=== PATIENT | female | born 1980 | race Caucasian/White ===

== ENCOUNTER 2017-02-12 17:32 | Emergency (ER) | payer SELFPAY ==
[2017-02-12 17:50] VITALS: BP 159/94
[2017-02-12 18:26] LABS: BILIRUBIN,URINE NEGATIVE (NEG); GLUCOSE,URINE NEGATIVE (NEG); NITRITE,URINE NEGATIVE (NEG); PROTEIN,URINE NEGATIVE (NEG-TRACE); UROBILINOGEN,URINE 0.2 mg/dL (0.2 mg/dL)
[2017-02-12] MEDS ORDERED: ONDANSETRON PF 4 MG/2 ML VIAL. IV ONE (18:30)
[2017-02-12] MEDS ORDERED: IV NORMAL SALINE 1000ML BAG 1,000 ML IV ONE (18:30)
[2017-02-12] MEDS ORDERED: MORPHINE SULFATE 4 MG/ML DISP.SYRIN. IV ONE ×2 (18:30→20:00)
[2017-02-12 18:31] LABS: BASO % 0 % (0-3); EOS % 3 % (0-3); HEMATOCRIT 41.7 % (36.0-47.0); HEMOGLOBIN 13.9 g/dL (12.0-15.5); LYMPH # 3.4 x10^3/uL (1.0-4.8); LYMPH % 36 % (24-48); MEAN CORPUSCULAR HEMOGLOBIN 30 pg (25-35); MEAN CORPUSCULAR HGB CONC 33 g/dL (31-37); MEAN CORPUSCULAR VOLUME 89 fL (79-100); MONO % 7 % (0-9); NEUT % 54 % (31-73); PLATELET COUNT 201 x10^3/uL (140-400); RED BLOOD COUNT 4.69 x10^6/uL (3.50-5.40); RED CELL DISTRIBUTION WIDTH 14.5 % (11.5-14.5); WHITE BLOOD COUNT 9.5 x10^3/uL (4.0-11.0)
[2017-02-12 18:34] LABS: BACTERIA,URINE FEW /HPF (0-FEW); RBC,URINE 0 /HPF (0-2); SQUAMOUS EPITHELIAL CELL,UR MOD /LPF; WBC,URINE OCC /HPF (0-4)
[2017-02-12 18:40] LABS: CALCIUM 8.7 mg/dL (8.5-10.1); CREATININE 1.1 mg/dL (0.6-1.0); GFR 56.9; POTASSIUM 3.3 mmol/L (3.5-5.1)
[2017-02-12 18:46] LABS: ALBUMIN 3.6 g/dL (3.4-5.0); ALBUMIN/GLOBULIN RATIO 1.1 (1.0-1.7); TOTAL BILIRUBIN 0.2 mg/dL (0.2-1.0); TOTAL PROTEIN 6.8 g/dL (6.4-8.2)
[2017-02-12] MEDS ORDERED: KETOROLAC TROMETHAMINE 30 MG/ML INJ. ONE (19:03)
[2017-02-12] MEDS ORDERED: KETOROLAC TROMETHAMINE 30 MG/ML INJ. IV ONE (19:15)
--- NOTE | 2017-02-12 19:38 | ED.ADGEN ---
Past Medical History Past Medical History: UTI Additional Past Medical Histor: MULTIPLE RENAL STONES Past Surgical History: Hysterectomy Additional Past Surgical Histo: LITHROTRIPSY Alcohol Use: None Drug Use: None Adult General Chief Complaint Chief Complaint: FLANK PAIN HPI HPI Patient is a 36 year old with history of kidney stones requiring stent placement and lithotripsy presents with intermittent left flank pain, with urinary frequency and dysuria for the past or days. Patient has been treating symptoms with ibuprofen with limited relief. Reports nausea with vomiting earlier today, currently complaints of nausea only. Orts sweats, but no fever or chills. No hematuria dysuria. Patient has previous hysterectomy. Patient recently relocated from [place] and has not yet established with a local PCP or urologist. Review of Systems Review of Systems ROS as per HPI. Current Medications Current Medications Current Medications Medications (Trade) Dose Ordered Sig/Audi Start Time Stop Time Status Last Admin Dose Admin Ketorolac Tromethamine (Toradol) 30 mg STK-MED ONCE 02/12/17 19:03 02/12/17 19:04 DC Morphine Sulfate 4 mg 1X ONCE 02/12/17 20:00 02/12/17 20:01 DC 02/12/17 20:01 4 MG Ondansetron HCl (Zofran) 4 mg 1X ONCE 02/12/17 18:30 02/12/17 18:31 DC 02/12/17 18:28 4 MG Sodium Chloride 1,000 ml @ 1,000 mls/hr 1X ONCE 02/12/17 18:30 02/12/17 19:29 DC 02/12/17 18:28 1,000 MLS/HR Allergies Allergies Allergies Coded Allergies Type Severity Reaction Last Updated Verified amoxicillin Allergy Severe CAUSES RAW SWOLLEN THROAT 02/12/17 Yes Physical Exam Physical Exam Constitutional: Diaphoretic, moderate distress secondary to pain. HENT: Normocephalic, atraumatic, bilateral external ears normal, oropharynx moist, no oral exudates, nose normal. Eyes: PERRL. Neck: Normal range of motion. Cardiovascular:Heart rate regular rhythm, no murmur. Lungs & Thorax: Bilateral breath sounds clear to auscultation. Abdomen: Bowel sounds normal, soft, no tenderness. Skin: Warm, dry. Back: No tenderness. Extremities: No tenderness, no cyanosis, no clubbing, ROM intact, no edema. Neurologic: Alert and oriented X 3, normal motor function, normal sensory function, no focal deficits noted. Psychologic: Affect normal, judgement normal, mood normal. Current Patient Data Vital Signs Vital Signs Date Time Temp Pulse Resp B/P (MAP) Pulse Ox O2 Delivery O2 Flow Rate FiO2 02/12/17 17:50 98.3 90 22 159/94 (115) 100 Room Air 98.3 Lab Values Laboratory Tests Test 02/12/17 17:45 02/12/17 18:00 Urine Collection Type Unknown Urine Color Yellow Urine Clarity Clear Urine pH 7.0 Urine Specific [place] 1.010 Urine Protein Negative mg/dL (NEG-TRACE) Urine Glucose (UA) Negative mg/dL (NEG) Urine Ketones (Stick) Negative mg/dL (NEG) Urine Blood Negative (NEG) Urine Nitrite Negative (NEG) Urine Bilirubin Negative (NEG) Urine Urobilinogen Dipstick 0.2 mg/dL (0.2 mg/dL) Urine Leukocyte Esterase Negative (NEG) Urine RBC 0 /HPF (0-2) Urine WBC Occ /HPF (0-4) Urine Squamous Epithelial Cells Mod /LPF Urine Bacteria Few /HPF (0-FEW) Urine Mucus Mod /LPF White Blood Count 9.5 x10^3/uL (4.0-11.0) Red Blood Count 4.69 x10^6/uL (3.50-5.40) Hemoglobin 13.9 g/dL (12.0-15.5) Hematocrit 41.7 % (36.0-47.0) Mean Corpuscular Volume 89 fL (79-100) Mean Corpuscular Hemoglobin 30 pg (25-35) Mean Corpuscular Hemoglobin Concent 33 g/dL (31-37) Red Cell Distribution Width 14.5 % (11.5-14.5) Platelet Count 201 x10^3/uL (140-400) Neutrophils (%) (Auto) 54 % (31-73) Lymphocytes (%) (Auto) 36 % (24-48) Monocytes (%) (Auto) 7 % (0-9) Eosinophils (%) (Auto) 3 % (0-3) Basophils (%) (Auto) 0 % (0-3) Neutrophils # (Auto) 5.1 x10^3uL (1.8-7.7) Lymphocytes # (Auto) 3.4 x10^3/uL (1.0-4.8) Monocytes # (Auto) 0.7 x10^3/uL (0.0-1.1) Eosinophils # (Auto) 0.2 x10^3/uL (0.0-0.7) Basophils # (Auto) 0.0 x10^3/uL (0.0-0.2) Sodium Level 141 mmol/L (136-145) Potassium Level 3.3 mmol/L (3.5-5.1) L Chloride Level 106 mmol/L (98-107) Carbon Dioxide Level 25 mmol/L (21-32) Anion Gap 10 (6-14) Blood Urea Nitrogen 10 mg/dL (7-20) Creatinine 1.1 mg/dL (0.6-1.0) H Estimated GFR (Cockcroft-Gault) 56.9 BUN/Creatinine Ratio 9 (6-20) Glucose Level 105 mg/dL (70-99) H Calcium Level 8.7 mg/dL (8.5-10.1) Total Bilirubin 0.2 mg/dL (0.2-1.0) Aspartate Amino Transferase (AST) 11 U/L (15-37) L Alanine Aminotransferase (ALT) 19 U/L (14-59) Alkaline Phosphatase 62 U/L (46-116) C-Reactive Protein, Quantitative 1.0 mg/L (0-3.3) Total Protein 6.8 g/dL (6.4-8.2) Albumin 3.6 g/dL (3.4-5.0) Albumin/Globulin Ratio 1.1 (1.0-1.7) Laboratory Tests 02/12/17 18:00 Laboratory Tests 02/12/17 18:00 EKG EKG [] Radiology/Procedures Radiology/Procedures [CT abdomen pelvis: No acute process per radiology report.] Course & Med Decision Making Course & Med Decision Making Pertinent Labs and Imaging studies reviewed. (See chart for details) [Lab work, CT abdomen/pelvis reassuring. No evidence of your ureteral obstruction. Patient may have had a recently passed stone. Symptoms typically improved in the ED with treatment. Recommend supportive care with local PCP follow-up in urology referral as needed. Return precautions reviewed. Dragon Disclaimer Dragon Disclaimer This electronic medical record was generated, in whole or in part, using a voice recognition dictation system. KUSH MEJIA 16, 2017 19:38
--- NOTE | 2017-02-12 20:08 | RAD ---
History: Left flank pain, nausea and vomiting for 2 days. Comparison: None. Technique: CT of the abdomen and pelvis was performed without intravenous or oral contrast. Exposure: One or more of the following individualized dose reduction techniques were utilized for this examination: 1. Automated exposure control 2. Adjustment of the mA and/or kV according to patient size 3. Use of iterative reconstruction technique Findings: Evaluation of solid organs of the abdomen and pelvis is limited by lack of intravenous contrast. Evaluation of enteric structures may be limited by lack of oral contrast. Liver, spleen, pancreas, gallbladder, and bilateral adrenal glands are unremarkable. No bowel obstruction or inflammation is seen. Appendix is without evidence of inflammation. Uterus is absent. Bilateral ovaries were likely left in place. Urinary bladder is unremarkable. Both ureters are free of stone or obstruction. Superior pole of right kidney demonstrates 4 mm nonobstructing nephrolith. Inferior pole of the right kidney demonstrates 5 mm nonobstructing nephrolith. Superior pole of the left kidney demonstrates 4 mm nonobstructing nephrolith. Interpolar region of the left kidney demonstrates 2 nonobstructing nephroliths in measuring 2 mm. Impression: 1. Nonobstructive bilateral nephrolithiasis. 2. No acute abnormality identified in the abdomen or pelvis. Electronically signed by: Ankush Powell MD (02/12/2017 8:05 PM)
== END 2017-02-12 20:42 | disposition home or self-care (01) ==
LOC: ER 17:32
DX: R10.9 Unspecified abdominal pain (principal); R30.0 Dysuria; R11.2 Nausea with vomiting, unspecified; Z87.442 Personal history of urinary calculi; Z87.440 Personal history of urinary (tract) infections; Z90.710 Acquired absence of both cervix and uterus; Z88.1 Allergy status to other antibiotic agents
CPT/HCPCS: 36415; 74176; 80053; 81001; 85027; 86140; 87040; 96361; 96374; 96375; 96376; 99285; J1885; J2270; J2405; J7030

== ENCOUNTER 2017-05-25 17:53 | Emergency (ER) | payer SELFPAY ==
[~2017-05-25] VITALS: Ht 167.6 cm; Wt 86.2 kg
[2017-05-25] MEDS ORDERED: IV NORMAL SALINE 1000ML BAG 1,000 ML IV SCH (18:12)
--- NOTE | 2017-05-25 18:14 | PHYS DOC ---
Past Medical History Past Medical History: Kidney Infection, Kidney Stone, UTI Additional Past Medical Histor: MULTIPLE RENAL STONES, ovarian cysts Past Surgical History: Hysterectomy Additional Past Surgical Histo: LITHROTRIPSY, percutaneous stent, 4 renal stents, kidney stone retreivals Alcohol Use: None Drug Use: None Adult General Chief Complaint Chief Complaint: FLANK PAIN HPI HPI Patient is a 36 year old female who presents with right-sided flank pain. It started yesterday in its been constant. She states it feels like her kidney stone that she's had in the past. She feels nauseated but denies any vomiting. She states it started in her back and now is radiating around into her right flank. She is requesting Toradol. She states that other than Toradol Dilaudid works. She states she's had numerous lithotripsies and percutaneous stents in [place] and now she does appear does not have a urologist as of yet. She states usually she can work through the pain at home by pushing fluids. Review of Systems Review of Systems Constitutional: Denies fever or chills [] Eyes: Denies change in visual acuity, redness, or eye pain [] HENT: Denies nasal congestion or sore throat [] Respiratory: Denies cough or shortness of breath [] Cardiovascular: No additional information not addressed in HPI [] GI: Positive for abdominal pain, nausea, denies any vomiting, bloody stools or diarrhea [] : Denies dysuria or hematuria [] Musculoskeletal: Denies back pain or joint pain [] Integument: Denies rash or skin lesions [] Neurologic: Denies headache, focal weakness or sensory changes [] Endocrine: Denies polyuria or polydipsia [] Current Medications Current Medications Current Medications Medications (Trade) Dose Ordered Sig/[facility] Start Time Stop Time Status Last Admin Dose Admin Fentanyl Citrate (Fentanyl 2ml Vial) 50 mcg PRN Q15MIN PRN 05/25/17 18:15 05/26/17 18:14 05/25/17 18:37 50 MCG Hydromorphone HCl (Dilaudid) 1 mg PRN Q15MIN PRN 05/25/17 19:00 05/26/17 18:59 05/25/17 19:56 1 MG Ketorolac Tromethamine (Toradol) 30 mg 1X ONCE 05/25/17 19:00 05/25/17 19:01 DC 05/25/17 19:10 30 MG Ondansetron HCl (Zofran) 4 mg 1X ONCE 05/25/17 19:15 05/25/17 19:22 DC 05/25/17 19:14 4 MG Sodium Chloride 1,000 ml @ 1,000 mls/hr 1X ONCE 05/25/17 20:30 05/25/17 21:29 05/25/17 20:40 1,000 MLS/HR Tamsulosin HCl (Flomax) 0.4 mg 1X ONCE 05/25/17 20:30 05/25/17 20:33 DC 05/25/17 20:39 0.4 MG Allergies Allergies Allergies Coded Allergies Type Severity Reaction Last Updated Verified amoxicillin Allergy Severe CAUSES RAW SWOLLEN THROAT 02/12/17 Yes Physical Exam Physical Exam Constitutional: Well developed, well nourished, no acute distress, non-toxic appearance. [] HENT: Normocephalic, atraumatic, bilateral external ears normal, oropharynx moist, no oral exudates, nose normal. [] Eyes: PERRLA, EOMI, conjunctiva normal, no discharge. [] Neck: Normal range of motion, no tenderness, supple, no stridor. [] Cardiovascular:Heart rate regular rhythm, no murmur [] Lungs & Thorax: Bilateral breath sounds clear to auscultation [] Abdomen: Bowel sounds normal, soft, tender palpation in the right flank, no masses, no pulsatile masses. [] Skin: Warm, dry, no erythema, no rash. [] Back: No tenderness, no CVA tenderness. [] Extremities: No tenderness, no cyanosis, no clubbing, ROM intact, no edema. [] Neurologic: Alert and oriented X 3, normal motor function, normal sensory function, no focal deficits noted. [] Psychologic: Affect normal, judgement normal, mood normal. [] Current Patient Data Vital Signs Vital Signs Date Time Temp Pulse Resp B/P (MAP) Pulse Ox O2 Delivery O2 Flow Rate FiO2 05/25/17 19:56 20 05/25/17 18:45 133 163/106 (125) 99 Room Air 05/25/17 18:01 98.1 98.1 Lab Values Laboratory Tests Test 05/25/17 18:10 05/25/17 18:20 Urine Collection Type Unknown Urine Color Yellow Urine Clarity Clear Urine pH 6.5 Urine Specific [place] <=1.005 Urine Protein Negative mg/dL (NEG-TRACE) Urine Glucose (UA) Negative mg/dL (NEG) Urine Ketones (Stick) Negative mg/dL (NEG) Urine Blood Large (NEG) Urine Nitrite Negative (NEG) Urine Bilirubin Negative (NEG) Urine Urobilinogen Dipstick 0.2 mg/dL (0.2 mg/dL) Urine Leukocyte Esterase Negative (NEG) Urine RBC Tntc /HPF (0-2) Urine WBC Occ /HPF (0-4) Urine Squamous Epithelial Cells Few /LPF Urine Bacteria 0 /HPF (0-FEW) Urine Test Negative (NEG) White Blood Count 12.0 x10^3/uL (4.0-11.0) H Red Blood Count 4.98 x10^6/uL (3.50-5.40) Hemoglobin 14.8 g/dL (12.0-15.5) Hematocrit 44.0 % (36.0-47.0) Mean Corpuscular Volume 89 fL (79-100) Mean Corpuscular Hemoglobin 30 pg (25-35) Mean Corpuscular Hemoglobin Concent 34 g/dL (31-37) Red Cell Distribution Width 14.9 % (11.5-14.5) H Platelet Count 281 x10^3/uL (140-400) Neutrophils (%) (Auto) 58 % (31-73) Lymphocytes (%) (Auto) 35 % (24-48) Monocytes (%) (Auto) 5 % (0-9) Eosinophils (%) (Auto) 1 % (0-3) Basophils (%) (Auto) 1 % (0-3) Neutrophils # (Auto) 7.0 x10^3uL (1.8-7.7) Lymphocytes # (Auto) 4.2 x10^3/uL (1.0-4.8) Monocytes # (Auto) 0.6 x10^3/uL (0.0-1.1) Eosinophils # (Auto) 0.2 x10^3/uL (0.0-0.7) Basophils # (Auto) 0.1 x10^3/uL (0.0-0.2) Sodium Level 141 mmol/L (136-145) Potassium Level 3.5 mmol/L (3.5-5.1) Chloride Level 104 mmol/L (98-107) Carbon Dioxide Level 24 mmol/L (21-32) Anion Gap 13 (6-14) Blood Urea Nitrogen 11 mg/dL (7-20) Creatinine 1.2 mg/dL (0.6-1.0) H Estimated GFR (Cockcroft-Gault) 51.4 Glucose Level 114 mg/dL (70-99) H Calcium Level 9.0 mg/dL (8.5-10.1) Total Bilirubin 0.7 mg/dL (0.2-1.0) Direct Bilirubin < 0.1 mg/dL (0.0-0.2) Aspartate Amino Transferase (AST) 14 U/L (15-37) L Alanine Aminotransferase (ALT) 16 U/L (14-59) Alkaline Phosphatase 68 U/L (46-116) Total Protein 7.9 g/dL (6.4-8.2) Albumin 4.9 g/dL (3.4-5.0) Laboratory Tests 05/25/17 18:20 Laboratory Tests 05/25/17 18:20 EKG EKG [] Radiology/Procedures Radiology/Procedures [facility] [address] [place], [place] [id number] IMAGING REPORT Signed PATIENT: JORJE GREENE ACCOUNT: [id number] : 1980 LOCATION: ER AGE: 36 SEX: F EXAM STATUS: REG ER ORD. PHYSICIAN: MARILU PINEDA MD REASON: right flank pain PROCEDURE: RENAL COMPLETE BILATERAL INDICATION: Right flank pain and history of stones. TECHNIQUE: Renal ultrasound was performed. Comparison is a CT abdomen and pelvis from February 12, 2017. FINDINGS: Right kidney measures at least 13.0 cm in length and the left 11.8 cm. There is no hydronephrosis or renal mass. Echogenic foci within both kidneys may represent nonobstructing renal calculi. Aorta is not visualized. IVC also is not visualized. This is secondary to bowel gas. Bladder is mildly distended and grossly unremarkable although neither urine jet could be documented. IMPRESSION: Echogenic foci within the kidneys compatible with renal calculi. No hydronephrosis is apparent. Electronically signed by: Shivam Varma MD (05/25/2017 8:43 PM) [facility] DICTATED and SIGNED BY: SHIVAM VARMA MD DATE: 05/25/172040 CC: MARILU PINEDA MD; NO PCP ~ Impressions: Flank pain Course & Med Decision Making Course & Med Decision Making Pertinent Labs and Imaging studies reviewed. (See chart for details) Ultrasound does not show any hydroureter show she has kidney stones. She has blood in her urine so she might have passed a stone into her bladder at this point. Her pain has decreased. She received Toradol and Dilaudid. She also received Flomax. She is agreeable being discharged with Percocet, Flomax and to follow-up with urology at [facility]. Return precautions given she is agreeable to the plan and being discharged in stable condition at this time. She is instructed to use a strainer which she has at home to catch a stone. Dragon Disclaimer Dragon Disclaimer This electronic medical record was generated, in whole or in part, using a voice recognition dictation system. Departure Departure Impression: Primary Impression: Kidney stones Disposition: HOME, SELF-CARE Condition: STABLE Referrals: NO PCP (PCP) Patient Instructions: Kidney Stones, [id number] Additional Instructions: You have a kidney stones and the ultrasound does not show that one is stuck in your ureter however the ultrasound could have missed a stone. You do not have an infection of your urine. Your pain has improved with IV fluids, Toradol and narcotic pain medicine. Your being discharged home per your request. You need to follow-up with [facility] urology, please call them: Their Address: [address] [place] [address] [address], [place] [address] . term back to ER for severe pain, fevers, or other concerns. Scripts Tamsulosin Hcl (FLOMAX) 0.4 Mg Cap.er.24h 1 CAP PO DAILY, #20 CAP 0 Refills Prov: MARILU PINEDA MD 05/25/17 Oxycodone/Apap 5-325 (PERCOCET 5-325 MG TABLET) 1 Each Tablet 1-2 TAB PO Q6HRS Y for PAIN, #15 TAB Prov: MARILU PINEDA MD 05/25/17 MARILU PINEDA MD May 25, 2017 18:14
[2017-05-25] MEDS ORDERED: fentaNYL PF VIAL 100 MCG/2 ML VIAL IV PRN (18:15)
[2017-05-25 18:33] LABS: BASO # 0.1 x10^3/uL (0.0-0.2); BASO % 1 % (0-3); EOS % 1 % (0-3); HEMOGLOBIN 14.8 g/dL (12.0-15.5); LYMPH # 4.2 x10^3/uL (1.0-4.8); LYMPH % 35 % (24-48); MEAN CORPUSCULAR HEMOGLOBIN 30 pg (25-35); MEAN CORPUSCULAR HGB CONC 34 g/dL (31-37); MEAN CORPUSCULAR VOLUME 89 fL (79-100); MONO % 5 % (0-9); NEUT % 58 % (31-73); PLATELET COUNT 281 x10^3/uL (140-400); RED BLOOD COUNT 4.98 x10^6/uL (3.50-5.40); RED CELL DISTRIBUTION WIDTH 14.9 % (11.5-14.5)
[2017-05-25 18:34] LABS: BILIRUBIN,URINE NEGATIVE (NEG); GLUCOSE,URINE NEGATIVE (NEG); NITRITE,URINE NEGATIVE (NEG); PH,URINE 6.5; PROTEIN,URINE NEGATIVE (NEG-TRACE); UROBILINOGEN,URINE 0.2 mg/dL (0.2 mg/dL)
[2017-05-25 18:45] VITALS: BP 163/106
[2017-05-25 18:46] LABS: ANION GAP 13 (6-14); BLOOD UREA NITROGEN 11 mg/dL (7-20); CARBON DIOXIDE 24 mmol/L (21-32); CHLORIDE 104 mmol/L (98-107); CREATININE 1.2 mg/dL (0.6-1.0); GFR 51.4; GLUCOSE 114 mg/dL (70-99); POTASSIUM 3.5 mmol/L (3.5-5.1); SODIUM 141 mmol/L (136-145)
[2017-05-25 18:50] LABS: BACTERIA,URINE 0 /HPF (0-FEW); RBC,URINE TNTC /HPF (0-2); SQUAMOUS EPITHELIAL CELL,UR FEW /LPF; WBC,URINE OCC /HPF (0-4)
[2017-05-25 18:58] LABS: ALBUMIN 4.9 g/dL (3.4-5.0); ALK PHOS 68 U/L (46-116); ALT (SGPT) 16 U/L (14-59); AST (SGOT) 14 U/L (15-37); DIRECT BILIRUBIN < 0.1 mg/dL (0.0-0.2); TOTAL BILIRUBIN 0.7 mg/dL (0.2-1.0); TOTAL PROTEIN 7.9 g/dL (6.4-8.2)
[2017-05-25] MEDS ORDERED: KETOROLAC 30 MG/ML INJ. IV ONE (19:00)
[2017-05-25] MEDS: HYDROmorphone 2 MG/ML VIAL IV/SQ PRN ×3 (19:10→21:24)
[2017-05-25 19:11] LABS: NEG OBC UR NEG; POS OBC UR POS
[2017-05-25] MEDS ORDERED: ONDANSETRON PF 4 MG/2 ML VIAL. ONE (19:13)
[2017-05-25] MEDS ORDERED: ONDANSETRON PF 4 MG/2 ML VIAL. IV ONE (19:15)
[2017-05-25] MEDS ORDERED: IV NORMAL SALINE 1000ML BAG 1,000 ML IV ONE (20:30)
[2017-05-25] MEDS ORDERED: TAMSULOSIN 0.4 MG CAP.ER.24H. PO ONE (20:30)
--- NOTE | 2017-05-25 20:46 | RAD ---
INDICATION: Right flank pain and history of stones. TECHNIQUE: Renal ultrasound was performed. Comparison is a CT abdomen and pelvis from February 12, 2017. FINDINGS: Right kidney measures at least 13.0 cm in length and the left 11.8 cm. There is no hydronephrosis or renal mass. Echogenic foci within both kidneys may represent nonobstructing renal calculi. Aorta is not visualized. IVC also is not visualized. This is secondary to bowel gas. Bladder is mildly distended and grossly unremarkable although neither urine jet could be documented. IMPRESSION: Echogenic foci within the kidneys compatible with renal calculi. No hydronephrosis is apparent. Electronically signed by: Tristian Varma MD (05/25/2017 8:43 PM) [facility]
[2017-05-25] MEDS ORDERED: TAMS0.4C97 PO (21:01)
[2017-05-25] MEDS ORDERED: OXYC-323 PO (21:01)
== END 2017-05-25 21:47 | disposition home or self-care (01) ==
LOC: ER 17:53
DX: N20.0 Calculus of kidney (principal); Z87.442 Personal history of urinary calculi; Z88.1 Allergy status to other antibiotic agents
CPT/HCPCS: 36415; 76770; 80048; 80076; 81001; 81025; 85025; 96361; 96374; 96375; 96376; 99285; J1170; J1885; J2405; J3010; J7030

== ENCOUNTER 2017-09-17 17:12 | Emergency (ER) | payer OTHER ==
[2017-09-17] MEDS: HYDROcodone/APAP 5/325MG 1 TAB TABLET PO (18:02)
== END 2017-09-17 18:22 | disposition home or self-care (01) ==
LOC: ER 17:12
DX: K04.7 Periapical abscess without sinus (principal); K02.9 Dental caries, unspecified; Z88.1 Allergy status to other antibiotic agents; Z87.442 Personal history of urinary calculi; Z87.440 Personal history of urinary (tract) infections; Z90.710 Acquired absence of both cervix and uterus
CPT/HCPCS: 99283

== ENCOUNTER → 2017-12-01 | Outpatient (CLI) | payer OTHER ==
[2017-12-01 11:23] LABS: ANION GAP 8 (6-14); BLOOD UREA NITROGEN 18 mg/dL (7-20); CALCIUM 9.2 mg/dL (8.5-10.1); CARBON DIOXIDE 28 mmol/L (21-32); CHLORIDE 105 mmol/L (98-107); CREATININE 1.2 mg/dL (0.6-1.0); GFR 51.1; GLUCOSE 73 mg/dL (70-99); POTASSIUM 4.2 mmol/L (3.5-5.1); SODIUM 141 mmol/L (136-145)
== END | disposition home or self-care (01) ==
LOC: US 10:39
DX: N20.0 Calculus of kidney (principal); N13.39 Other hydronephrosis; Z87.442 Personal history of urinary calculi
CPT/HCPCS: 36415; 74018; 76770; 80048

== ENCOUNTER → 2017-12-07 | Outpatient (CLI) | payer OTHER | END | disposition home or self-care (01) | LOC: US 14:48 | DX: N83.201 Unspecified ovarian cyst, right side (principal); Z87.42 Personal history of other diseases of the female genital tract | CPT/HCPCS: 76830; 76856 ==

== ENCOUNTER → 2017-12-17 | Outpatient (CLI) | payer OTHER ==
[2017-12-17 12:10] LABS: THYROID STIM HORMONE (TSH) 1.144 uIU/mL (0.358-3.74)
[2017-12-17 12:10] LABS: FREE T4 0.84 ng/dL (0.76-1.46)
[2017-12-17 21:11] LABS: FSH 5.8 mIU/mL (.); PROLACTIN 17.5 ng/mL (4.8-23.3); TESTOSTERONE TOTAL <3 ng/dL (8-48)
== END | disposition home or self-care (01) ==
LOC: LAB 11:05
DX: Z01.419 Encounter for gynecological examination (general) (routine) without abnormal findings (principal); N95.1 Menopausal and female climacteric states; R10.2 Pelvic and perineal pain; Z87.42 Personal history of other diseases of the female genital tract
CPT/HCPCS: 36415; 82627; 83001; 84146; 84403; 84439; 84443

== ENCOUNTER 2017-12-25 11:53 | Emergency (ER) | payer OTHER ==
[2017-12-25 12:31] LABS: URINE HCG POC HCG NEGATIVE (Negative)
[2017-12-25 12:32] LABS: BILIRUBIN,URINE NEGATIVE (NEG); CLARITY,URINE CLOUDY; COLOR,URINE YELLOW; GLUCOSE,URINE NEGATIVE (NEG); NITRITE,URINE NEGATIVE (NEG); PH,URINE 6.5; PROTEIN,URINE NEGATIVE (NEG-TRACE); UROBILINOGEN,URINE 0.2 mg/dL (0.2 mg/dL)
[2017-12-25] MEDS: IV NORMAL SALINE 1000ML BAG 1,000 ML IV (12:46)
[2017-12-25 12:47] LABS: AMORPHOUS SEDIMENT,UR PRESENT /HPF; BACTERIA,URINE 0 /HPF (0-FEW); RBC,URINE TNTC /HPF (0-2); WBC,URINE 0 /HPF (0-4)
[2017-12-25] MEDS: ONDANSETRON PF 4 MG/2 ML VIAL. IV (12:54)
[2017-12-25] MEDS: fentaNYL PF VIAL 100 MCG/2 ML VIAL IV ×3 (12:56→14:04)
[2017-12-25 13:03] LABS: ADD MAN DIFF? NO
[2017-12-25 13:09] LABS: BASO % 0 % (0-3); EOS # 0.2 x10^3/uL (0.0-0.7); EOS % 2 % (0-3); HEMATOCRIT 41.5 % (36.0-47.0); HEMOGLOBIN 14.4 g/dL (12.0-15.5); LYMPH # 2.6 x10^3/uL (1.0-4.8); LYMPH % 23 % (24-48); MEAN CORPUSCULAR HEMOGLOBIN 31 pg (25-35); MEAN CORPUSCULAR HGB CONC 35 g/dL (31-37); MEAN CORPUSCULAR VOLUME 90 fL (79-100); MONO # 0.7 x10^3/uL (0.0-1.1); MONO % 7 % (0-9); NEUT # 7.6 x10^3uL (1.8-7.7); NEUT % 68 % (31-73); PLATELET COUNT 210 x10^3/uL (140-400); RED BLOOD COUNT 4.63 x10^6/uL (3.50-5.40); WHITE BLOOD COUNT 11.2 x10^3/uL (4.0-11.0)
[2017-12-25 13:27] LABS: ANION GAP 11 (6-14); BLOOD UREA NITROGEN 17 mg/dL (7-20); BUN/CREATININE RATIO 17 (6-20); CALCIUM 8.9 mg/dL (8.5-10.1); CARBON DIOXIDE 25 mmol/L (21-32); CHLORIDE 106 mmol/L (98-107); GFR 63.1; GLUCOSE 90 mg/dL (70-99); POTASSIUM 4.6 mmol/L (3.5-5.1); SODIUM 142 mmol/L (136-145)
[2017-12-25 13:32] LABS: ALBUMIN 3.7 g/dL (3.4-5.0); ALBUMIN/GLOBULIN RATIO 1.1 (1.0-1.7); ALK PHOS 63 U/L (46-116); ALT (SGPT) 18 U/L (14-59); AST (SGOT) 14 U/L (15-37); LIPASE 98 U/L (73-393); TOTAL BILIRUBIN 0.5 mg/dL (0.2-1.0); TOTAL PROTEIN 7.1 g/dL (6.4-8.2)
== END 2017-12-25 14:51 | disposition left against medical advice (07) ==
LOC: ER 11:53
DX: R10.9 Unspecified abdominal pain (principal); Z90.710 Acquired absence of both cervix and uterus; Z79.899 Other long term (current) drug therapy; Z88.1 Allergy status to other antibiotic agents
CPT/HCPCS: 36415; 74176; 76830; 76856; 80053; 81001; 81025; 83690; 85025; 96374; 96375; 96376; 99285; J2405; J3010; J7030